=== PATIENT | male | born 1970 | race Caucasian/White ===

== ENCOUNTER 2017-02-27 16:04 | Emergency (ER) | payer OTHER ==
[2017-02-27] MEDS ORDERED: HYDR-2758 PO (16:23)
--- NOTE | 2017-02-27 16:24 | PHYS DOC ---
Adult General Chief Complaint Chief Complaint: BACK PAIN - NO INJURY HPI HPI 47-year-old male presenting to the emergency department today with lumbar back pain. He reports having a history of lumbar disc disease. Pain is moderate worse with walking intermittent and without alleviating factors. He denies numbness weakness tingling perineal paresthesias urinary incontinence or fecal incontinence. Review of systems is negative for chest pain shortness of breath abdominal pain nausea vomiting. All other review of systems is negative unless otherwise noted in history of present illness. ED course: 47-year-old male presenting to the emergency department today with lumbar back pain acute on chronic after lifting boxes while moving. Physical exam unremarkable. Clinical presentation not suggestive of cauda equina syndrome. The patient was prescribed oral intake inflammatory medications and pain medications to follow-up with his doctor in the next 2-3 days. The patient was then discharged home in stable condition to follow up with their primary care physician over the next 2-3 days. They were to return if their symptoms worsened or if they were concerned for any reason. [id number] discharge instructions and return precautions were given. Patient's questions were answered to their satisfaction. Patient is comfortable plan. Review of Systems Review of Systems see above Physical Exam Physical Exam Constitutional: Well developed, well nourished, no acute distress, non-toxic appearance. [] HENT: Normocephalic, atraumatic, bilateral external ears normal, oropharynx moist, no oral exudates, nose normal. [] Eyes: PERRLA, EOMI, conjunctiva normal, no discharge. [] Neck: Normal range of motion, no tenderness, supple, no stridor. [] Cardiovascular:Heart rate regular rhythm, no murmur [] Lungs & Thorax: Bilateral breath sounds clear to auscultation [] Abdomen: Bowel sounds normal, soft, no tenderness, no masses, no pulsatile masses. [] Skin: Warm, dry, no erythema, no rash. [] Back: Mild tenderness along the paraspinal musculature without midline tenderness. No step-offs. No abrasions lacerations or ecchymosis or fluctuance. Extremities: No tenderness, no cyanosis, no clubbing, ROM intact, no edema. [] Neurologic: Alert and oriented X 3, normal motor function, normal sensory function, no focal deficits noted. [] Psychologic: Affect normal, judgement normal, mood normal. [] EKG EKG [] Radiology/Procedures Radiology/Procedures [] Course & Med Decision Making Course & Med Decision Making Pertinent Labs and Imaging studies reviewed. (See chart for details) [] Dragon Disclaimer Dragon Disclaimer This chart was dictated in whole or in part using Voice Recognition software in a busy, high-work load, and often noisy Emergency Department environment. It may contain unintended and wholly unrecognized errors or omissions. Departure Departure: Impression: Primary Impression: Back pain Disposition: HOME, SELF-CARE Condition: STABLE Referrals: JUSTICE MENDEZ DO, [facility] (PCP) Patient Instructions: Back Pain, Adult Additional Instructions: Thank you for allowing us to participate in your care today. Followup with your primary care physician in 3 days if your symptoms do not improve. Call your Primary Doctor tomorrow and inform them of your visit today. If you do not have a primary care provider you can ask for a list of our primary care providers. Return to the emergency department you have any new or concerning findings. This should be evaluated by the primary care physician and any necessary consulting services for continued management within a few days after discharge. Return to emergency room if you have any new or concerning symptoms including but not limited to fever, chills, nausea, vomiting, intractable pain, any new rashes, chest pain, shortness of air, uncontrolled bleeding, difficulty breathing, and/or vision loss. You may have been prescribed medication that can change in your level of thinking and ability to operate machinery. These medications include hydrocodone and Ativan. Also, Benadryl has been known to do this as well. Be sure to check with your pharmacist and ask if the medications you've prescribed can affect your level of consciousness. I recommend not operating heavy machinery or driving while on medication such as these. Scripts Prednisone (PREDNISONE) 50 Mg Tablet 1 TAB PO DAILY, #4 TAB start medication on February 28. You received 1 dose in the emergency department on the . Prov: ZEESHAN HANDY MD 02/27/17 Hydrocodone Bit/Acetaminophen (HYDROCODONE-APAP 5-325 ) 1 Each Tablet 1 TAB PO PRN Q6HRS Y for PAIN, #10 TAB 0 Refills Prov: ZEESHAN HANDY MD 02/27/17 ZEESHAN HANDY MD Feb 27, 2017 16:23
[2017-02-27] MEDS ORDERED: PRED50TA PO (16:25)
[2017-02-27 16:35] VITALS: BP 147/98
[2017-02-27] MEDS ORDERED: predniSONE 10 MG TABLET PO ONE (16:35)
[2017-02-27] MEDS ORDERED: KETOROLAC 30 MG/ML VIAL. IM ONE (16:35)
== END 2017-02-27 16:35 | disposition home or self-care (01) ==
LOC: ER 16:04
DX: G89.29 Other chronic pain (principal); M54.5 Low back pain
CPT/HCPCS: 96372; 99283; J1885; J7512

== ENCOUNTER 2017-08-05 10:51 | Emergency (ER) | payer OTHER ==
[~2017-08-05] VITALS: Ht 182.9 cm; Wt 93.0 kg
[~2017-08-05 10:51] MED LIST: HYDR-2758 PO; PRED50TA PO
[2017-08-05] MEDS ORDERED: FLUT9.9S NS (12:32)
--- NOTE | 2017-08-05 12:32 | PHYS DOC ---
Past History Past Medical History: Hypertension, Other Past Surgical History: Other Alcohol Use: Occasionally Drug Use: None Adult General Chief Complaint Chief Complaint: COUGH HPI HPI Patient is a 47 year old M who presents with cough, ear fullness and nasal congestion. He states that his symptoms been present over the past 3-4 days with mild progressive worsening. He denies fever sweats or chills. He notes moderate mucus and posterior nasal drip. He has no other associated symptoms and no other exacerbating or alleviating factors. Review of Systems Review of Systems Constitutional: Denies fever or chills [] Eyes: Denies change in visual acuity, redness, or eye pain [] HENT: Denies sore throat [] Respiratory: Denies shortness of breath [] Cardiovascular: No additional information not addressed in HPI [] GI: Denies abdominal pain, nausea, vomiting, bloody stools or diarrhea [] : Denies dysuria or hematuria [] Musculoskeletal: Denies back pain or joint pain [] Integument: Denies rash or skin lesions [] Neurologic: Denies headache, focal weakness or sensory changes [] Endocrine: Denies polyuria or polydipsia [] All other systems were reviewed and found to be within normal limits, except as documented in this note. Family History Family History No pertinent family medical history was reported Current Medications Current Medications Current medications were reviewed Allergies Allergies Allergies Coded Allergies Type Severity Reaction Last Updated Verified No Known Drug Allergies 02/27/17 No Physical Exam Physical Exam Constitutional: Well developed, well nourished, no acute distress, non-toxic appearance. [] HENT: Normocephalic, atraumatic, moderate nasal mucosa erythema and edema with moderate mucus TMs clear bilaterally no sinus tenderness Eyes: EOMI, conjunctiva normal, no discharge. [] Neck: Normal range of motion, no tenderness, supple, no stridor. [] Cardiovascular:Heart rate regular rhythm, no murmur [] Lungs & Thorax: Bilateral breath sounds clear to auscultation [] Abdomen: Bowel sounds normal, soft, no tenderness, no masses, no pulsatile masses. [] Skin: Warm, dry, no erythema, no rash. [] Extremities: No tenderness, no cyanosis, no clubbing, ROM intact, no edema. [] Neurologic: Alert and oriented X 3, normal motor function, normal sensory function, no focal deficits noted. [] Psychologic: Affect normal, judgement normal, mood normal. [] Current Patient Data Vital Signs Vital Signs Date Time Temp Pulse Resp B/P (MAP) Pulse Ox O2 Delivery O2 Flow Rate FiO2 08/05/17 11:13 97.2 102 17 96 Room Air EKG EKG [] Radiology/Procedures Radiology/Procedures [] Course & Med Decision Making Course & Med Decision Making Pertinent Labs and Imaging studies reviewed. (See chart for details) [] Dragon Disclaimer Dragon Disclaimer This electronic medical record was generated, in whole or in part, using a voice recognition dictation system. Departure Departure: Impression: Primary Impression: Upper respiratory infection, viral Disposition: HOME, SELF-CARE Condition: STABLE Referrals: JUSTICE MENDEZ DO, [facility] (PCP) Patient Instructions: Upper Respiratory Infection, Adult Additional Instructions: Meño was seen in the ED for cough and congestion. No emergency medical condition was found on history and physical exam. His symptoms are most consistent with an upper respiratory infection. He is advised to use nasal saline rinses regularly. He was given a prescription for nasal steroid spray. He is advised consider limited use of Afrin for his symptoms as well. Is advised follow-up with his primary care doctor as needed for further management. Scripts Fluticasone Propionate (Flonase Allergy Relief) 9.9 Ml [place].susp 1 SPRAYS NS BID for 7 Days, BOTTLE Prov: DARLIN SIMONS MD 08/05/17 DARLIN SIMONS MD Aug 05, 2017 12:32
[2017-08-05 12:59] VITALS: BP 148/68
== END 2017-08-05 13:00 | disposition home or self-care (01) ==
LOC: ER 10:51
DX: J06.9 Acute upper respiratory infection, unspecified (principal); B97.89 Other viral agents as the cause of diseases classified elsewhere; I10 Essential (primary) hypertension
CPT/HCPCS: 99283

== ENCOUNTER 2018-05-16 16:44 | Emergency (ER) | payer OTHER ==
[~2018-05-16] VITALS: Ht 182.9 cm; Wt 100.2 kg
[~2018-05-16 16:44] MED LIST changes: +FLUT9.9S NS
[2018-05-16] MEDS ORDERED: IBUPROFEN 400 MG TABLET. PO ONE (17:10)
--- NOTE | 2018-05-16 17:23 | RAD ---
Indication: Heavy object fell on mid forearm. Pain and swelling TECHNIQUE: AP and lateral views of thew right forearm COMPARISON: None Findings/ impression: No acute fracture or dislocation. No elbow joint effusion. Electronically signed by: Jaswinder Sánchez DO (05/16/2018 5:20 PM) [facility]
[2018-05-16] MEDS ORDERED: HYDR-971 PO (17:41)
[2018-05-16] MEDS ORDERED: IBUP800T19 PO (17:41)
--- NOTE | 2018-05-16 17:41 | PHYS DOC ---
Past History Past Medical History: Hypertension, Other Past Surgical History: Other Smoking: Non-smoker Alcohol Use: Occasionally Drug Use: None Adult General Chief Complaint Chief Complaint: UPPER EXTREMITY INJURY HPI HPI Patient is a 48 year old right handed male who presents with complaining of injury to right forearm. Patient states 20-30 pounds metal cylinder fell on his forearm prior to arrival to ER without other injuries or focal neuro deficit. Patient rated his pain as moderate. Patient is up-to-date with his immunization. Review of Systems Review of Systems Constitutional: Denies fever or chills [] Eyes: Denies change in visual acuity, redness, or eye pain [] HENT: Denies nasal congestion or sore throat [] Respiratory: Denies cough or shortness of breath [] Cardiovascular: No additional information not addressed in HPI [] GI: Denies abdominal pain, nausea, vomiting, bloody stools or diarrhea [] : Denies dysuria or hematuria [] Musculoskeletal: Denies back pain or joint pain [] Integument: Denies rash or skin lesions [] Neurologic: Denies headache, focal weakness or sensory changes [] Endocrine: Denies polyuria or polydipsia [] All other systems were reviewed and found to be within normal limits, except as documented in this note. Current Medications Current Medications Current Medications Medications (Trade) Dose Ordered Sig/Harshad Start Time Stop Time Status Last Admin Dose Admin Ibuprofen (Motrin) 800 mg 1X ONCE 05/16/18 17:10 05/16/18 17:11 DC 05/16/18 17:21 800 MG Allergies Allergies Allergies Coded Allergies Type Severity Reaction Last Updated Verified naproxen Allergy Unknown 05/16/18 Yes Physical Exam Physical Exam Constitutional: Well developed, well nourished, mild distress, non-toxic appearance. [] HENT: Normocephalic, atraumatic. Eyes: PERRLA, EOMI, conjunctiva normal, no discharge. [] Neck: Normal range of motion, no tenderness, supple, no stridor. [] Cardiovascular:Heart rate regular rhythm, no murmur [] Lungs & Thorax: Bilateral breath sounds clear to auscultation [] Extremities: Right forearm without deformity or edema or contusion, tenderness of mid shaft of right forearm without neurovascular deficit, , no cyanosis, no clubbing, ROM intact, no edema. [] Neurologic: Alert and oriented X 3, normal motor function, normal sensory function, no focal deficits noted. [] Psychologic: Affect normal, judgement normal, mood normal. [] Current Patient Data Vital Signs Vital Signs Date Time Temp Pulse Resp B/P (MAP) Pulse Ox O2 Delivery O2 Flow Rate FiO2 05/16/18 16:44 97.7 86 18 96 Room Air EKG EKG [] Radiology/Procedures Radiology/Procedures [address] [address] IMAGING REPORT Signed PATIENT: PALMER JOY ACCOUNT: [id number] : 1970 LOCATION: ER AGE: 48 SEX: M EXAM STATUS: PRE ER ORD. PHYSICIAN: OTILIA SAM MD REASON: injury PROCEDURE: FOREARM RIGHT Indication: Heavy object fell on mid forearm. Pain and swelling TECHNIQUE: AP and lateral views of thew right forearm COMPARISON: None Findings/ impression: No acute fracture or dislocation. No elbow joint effusion. Electronically signed by: Jaswinder Sánchez DO (05/16/2018 5:20 PM) [facility] DICTATED AND SIGNED BY: JASWINDER SÁNCHEZ DO DATE: 05/16/18 1719 CC: OTILIA SAM MD; JIN MEADOWS MD ~ Course & Med Decision Making Course & Med Decision Making Pertinent Imaging studies reviewed. (See chart for details) discharge: I've spoken with the patient and/or caregivers. I've explained the patient's condition, diagnosis and treatment plan based on information available to me at this time. I've answered the patient's and/or caregivers questions and addressed any concerns. The patient and/or caregivers have a good understanding the patient's diagnosis, condition and treatment plan as can be expected at this point. Vital signs have been stabilized. The patient's condition is stable for discharge from the emergency department. The patient will pursue further outpatient evaluation with her primary care provider or other designated consulting physician as outlined in the discharge instructions. Patient and/or caregivers are agreeable to this plan of care and follow-up instructions have been explained in detail. The patient and/or caregivers have received these instructions in written format and expressed understanding of these discharge instructions. The patient and her caregivers are aware that if any significant change in condition or worsening of symptoms should prompt him to immediately return to this of the closest emergency department. If an emergent department is not readily available I would encourage him to call 911. Frieda Disclaimer Frieda Disclaimer This electronic medical record was generated, in whole or in part, using a voice recognition dictation system. Departure Departure: Impression: Primary Impression: Right forearm injury Disposition: HOME, SELF-CARE (at 1739) Condition: STABLE Referrals: JIN MEADOWS MD (PCP) Patient Instructions: Contusion Additional Instructions: Apply ice on the affected area Follow-up with your primary care physician in 3-5 days Return to ER if not getting better Scripts Hydrocodone Bit/Acetaminophen (NORCO 5-325 TABLET) 1 Each Tablet 1 TAB PO PRN Q6HRS PRN for PAIN, #14 TAB 0 Refills Prov: OTILIA SAM MD 05/16/18 Ibuprofen (IBUPROFEN) 800 Mg Tablet 800 MG PO TID PRN for PAIN, #30 TAB Prov: OTILIA SAM MD 05/16/18 OTILIA SAM MD May 16, 2018 17:41
[2018-05-16 17:53] VITALS: BP 166/92
== END 2018-05-16 17:47 | disposition home or self-care (01) ==
LOC: ER 16:44
DX: S59.911A Unspecified injury of right forearm, initial encounter (principal); I10 Essential (primary) hypertension; Z88.6 Allergy status to analgesic agent; W20.8XXA Other cause of strike by thrown, projected or falling object, initial encounter; Y93.89 Activity, other specified; Y92.89 Other specified places as the place of occurrence of the external cause; Y99.8 Other external cause status
CPT/HCPCS: 73090; 99284

== ENCOUNTER 2018-09-17 09:04 | Emergency (ER) | payer OTHER ==
[~2018-09-17] VITALS: Ht 182.9 cm; Wt 95.3 kg
[~2018-09-17 09:04] MED LIST changes: +HYDR-2155 PO; -HYDR-2758 PO; +HYDR-3165 PO; +IBUP800T19 PO
[2018-09-17 09:10] VITALS: BP 137/80
--- NOTE | 2018-09-17 09:36 | PHYS DOC ---
Past History Past Medical History: Hypertension Past Surgical History: Other Smoking: Non-smoker Alcohol Use: Occasionally Drug Use: None Adult General Chief Complaint Chief Complaint: NAUSEA/VOMITING [facility] HPI Patient is a 48 year old male who presents with complaining of nausea and vomiting since last night. Patient states he had history of chronic back pain related to injury during the 3 surgeries and had increasing of low back pain for a few days and seen by his primary care physician 3 days ago and treated with hydrocodone and ibuprofen. Patient complaining of cough and fever up to 101 for the last couple days. Patient denies diarrhea, sore throat, earache, sick contacts at home, urinary symptom, focal neuro deficit. Patient states during episodes of cough his back pain getting worse. Patient states his 4-year- old son is getting chemotherapy for leukemia and he wants to make sure he doesn' t have influenza. Review of Systems Review of Systems Constitutional: Reports fever Eyes: Denies change in visual acuity, redness, or eye pain [] HENT: Denies nasal congestion or sore throat [] Respiratory: Reports cough Cardiovascular: No additional information not addressed in HPI [] GI: Denies abdominal pain, bloody stools or diarrhea, reports nausea and vomiting [] : Denies dysuria or hematuria [] Musculoskeletal: Reports back pain, denies joint pain [] Integument: Denies rash or skin lesions [] Neurologic: Denies headache, focal weakness or sensory changes [] Endocrine: Denies polyuria or polydipsia [] All other systems were reviewed and found to be within normal limits, except as documented in this note. Allergies Allergies Allergies Coded Allergies Type Severity Reaction Last Updated Verified naproxen Allergy Unknown 05/16/18 Yes Physical Exam Physical Exam Constitutional: Well developed, well nourished, mild acute distress, non-toxic appearance. [] HENT: Normocephalic, atraumatic, bilateral external ears normal, oropharynx moist, no oral exudates, nose normal. [] Eyes: PERRLA, EOMI, conjunctiva normal, no discharge. [] Neck: Normal range of motion, no tenderness, supple, no stridor. [] Cardiovascular:Heart rate regular rhythm, no murmur [] Lungs & Thorax: Bilateral breath sounds clear to auscultation [] Abdomen: Bowel sounds normal, soft, no tenderness, no masses, no pulsatile masses. [] Skin: Warm, dry, no erythema, no rash. [] Back: No tenderness, no CVA tenderness. [] Extremities: No tenderness, no cyanosis, no clubbing, ROM intact, no edema. [] Neurologic: Alert and oriented X 3, normal motor function, normal sensory function, no focal deficits noted. [] Psychologic: Affect normal, judgement normal, mood normal. [] Current Patient Data Vital Signs Vital Signs Date Time Temp Pulse Resp B/P (MAP) Pulse Ox O2 Delivery O2 Flow Rate FiO2 09/17/18 09:10 98.5 90 20 97 Room Air EKG EKG [] Radiology/Procedures Radiology/Procedures [] Course & Med Decision Making Course & Med Decision Making Pertinent Labs and Imaging studies Evolution of patient in ER showed 48-year-old male patient with complaining of low back pain for a few days and nausea and vomiting since last night. Temperature of 101 at home. Patient had negative flu test. Patient did not have sign of dehydration and tolerated oral intake before arrival to ER. Plan discharge patient home with diagnose of lumbosacral strain and viral gastritis. Dragon Disclaimer Dragon Disclaimer This electronic medical record was generated, in whole or in part, using a voice recognition dictation system. Departure Departure: Impression: Primary Impression: Viral gastritis Additional Impressions: Upper respiratory infection, viral Acute lumbosacral myofascial strain Disposition: 01 HOME, SELF-CARE (at 0956) Condition: STABLE Referrals: JIN MEADOWS MD (PCP) Patient Instructions: Lumbosacral Strain, Nausea and Vomiting, Upper Respiratory Infection, Adult Additional Instructions: Drink plenty of liquids Follow-up with your primary care physician in 3-5 days Return to ER if not getting better Scripts Ondansetron Hcl (ZOFRAN) 4 Mg Tablet 1 TAB PO Q6HRS for nausea and vomiting, #12 TAB Prov: OTILIA SAM MD 09/17/18 Hydrocodone/Chlorphen P-Stirex (Tussionex Pennkinetic Susp) 115 Ml [place].er.12h 5 ML PO BID for cough and congestion, #120 ML Prov: OTILIA SAM MD 09/17/18 Cyclobenzaprine Hcl (CYCLOBENZAPRINE HCL) 10 Mg Tablet 1 TAB PO TID for pain, #30 TAB Prov: OTILIA SAM MD 09/17/18 Problem Qualifiers Additional Impressions: Acute lumbosacral myofascial strain Encounter type: subsequent encounter Qualified Codes: S39.012D - Strain of muscle, fascia and tendon of lower back, subsequent encounter OTILIA SAM MD Sep 17, 2018 09:36
[2018-09-17 09:49] LABS: INFLUENZA A PATIENT NEGATIVE (NEGATIVE); INFLUENZA B PATIENT NEGATIVE (NEGATIVE)
[2018-09-17] MEDS ORDERED: CYCL-331 PO (09:57)
[2018-09-17] MEDS ORDERED: HYDR115S2 PO (09:57)
[2018-09-17] MEDS ORDERED: ONDA4TAB7 PO (09:57)
== END 2018-09-17 10:00 | disposition home or self-care (01) ==
LOC: ER 09:04
DX: S39.012A Strain of muscle, fascia and tendon of lower back, initial encounter (principal); A08.4 Viral intestinal infection, unspecified; J06.9 Acute upper respiratory infection, unspecified; I10 Essential (primary) hypertension; Z88.6 Allergy status to analgesic agent; X58.XXXA Exposure to other specified factors, initial encounter; Y93.89 Activity, other specified; Y92.89 Other specified places as the place of occurrence of the external cause; Y99.8 Other external cause status
CPT/HCPCS: 87804; 99283

== ENCOUNTER 2018-12-03 12:42 | Emergency (ER) | payer OTHER ==
[~2018-12-03] VITALS: Ht 182.9 cm; Wt 98.4 kg
[~2018-12-03 12:42] MED LIST changes: +CYCL-331 PO; +HYDR115S2 PO; +ONDA4TAB7 PO
[2018-12-03 12:58] VITALS: BP 137/97
--- NOTE | 2018-12-03 12:58 | PHYS DOC ---
Past History Past Medical History: Hypertension Past Surgical History: Other Smoking: Non-smoker Alcohol Use: Occasionally Drug Use: None Adult General Chief Complaint Chief Complaint: UPPER EXTREMITY PAIN HPI HPI Patient is a 48-year-old male who presents with complaint of pain and injury to his right hand. Patient states that he had taken his kids to the [place] [facility] [employer] and he had accidentally hyperflexed his third and fourth digits and since then he has had a lot of pain especially along the dorsal aspect as well as swelling in this area. He also indicates that during the night he had spasming in his hand that caused him to wake up and have difficulty sleeping. He rates pain as moderate. He denies any other injuries. He does not think that he actually impacted his knuckles. Review of Systems Review of Systems Constitutional: Denies fever or chills [] Respiratory: Denies cough or shortness of breath [] Cardiovascular: No additional information not addressed in HPI [] Musculoskeletal: Positive right hand pain [] Allergies Allergies Allergies Coded Allergies Type Severity Reaction Last Updated Verified naproxen Allergy Unknown 05/16/18 Yes Physical Exam Physical Exam Constitutional: Well developed, well nourished, no acute distress, non-toxic appearance. [] Cardiovascular: Regular rate and rhythm[] Lungs & Thorax: Bilateral breath sounds clear to auscultation [] Extremities: Examination of right hand demonstrates soft tissue swelling, redness and tenderness on the dorsal aspect of the hand worst around the third and fourth MCPs. [] Neurologic: Alert and oriented X 3, no focal deficits noted. [] EKG EKG [] Radiology/Procedures Radiology/Procedures [] Impressions: PROCEDURE: HAND RIGHT 3V Right hand, 3 views, 12/03/2018: HISTORY: Hand pain, injury A tiny calcific density located along the volar aspect of the PIP joint of the middle finger is sclerotic and probably old. No acute fracture or dislocation is identified. There is mild soft tissue swelling over the distal metacarpals. IMPRESSION: No acute bony abnormality is detected. Electronically signed by: Loc Pleitez MD (12/03/2018 1:19 PM) [facility] Course & Med Decision Making Course & Med Decision Making Pertinent Labs and Imaging studies reviewed. (See chart for details) [] Dragon Disclaimer Dragon Disclaimer This electronic medical record was generated, in whole or in part, using a voice recognition dictation system. Departure Departure: Impression: Primary Impression: Sprain of right hand Disposition: HOME, SELF-CARE Condition: STABLE Referrals: JIN MEADOWS MD (PCP) Patient Instructions: Joint Sprain Scripts Hydrocodone Bit/Acetaminophen (NORCO 5-325 TABLET) 1 Each Tablet 1 TAB PO PRN Q6HRS PRN for PAIN, #15 TAB 0 Refills Prov: CHAVO SALINAS Jr. DO 12/03/18 Problem Qualifiers Primary Impression: Sprain of right hand Encounter type: initial encounter Qualified Codes: S63.91XA - Sprain of unspecified part of right wrist and hand, initial encounter CHAVO SALINAS Jr. DO December 03, 2018 12:58
--- NOTE | 2018-12-03 13:22 | RAD ---
Right hand, 3 views, 12/03/2018: HISTORY: Hand pain, injury A tiny calcific density located along the volar aspect of the PIP joint of the middle finger is sclerotic and probably old. No acute fracture or dislocation is identified. There is mild soft tissue swelling over the distal metacarpals. IMPRESSION: No acute bony abnormality is detected. Electronically signed by: Loc Pleitez MD (12/03/2018 1:19 PM) [facility]
[2018-12-03] MEDS ORDERED: HYDR-3165 PO (13:34)
== END 2018-12-03 13:40 | disposition home or self-care (01) ==
LOC: ER 12:42
DX: S63.91XA Sprain of unspecified part of right wrist and hand, initial encounter (principal); I10 Essential (primary) hypertension; Z88.8 Allergy status to other drugs, medicaments and biological substances; X50.9XXA Other and unspecified overexertion or strenuous movements or postures, initial encounter; Y93.89 Activity, other specified; Y92.89 Other specified places as the place of occurrence of the external cause; Y99.8 Other external cause status
CPT/HCPCS: 29125; 73130; 99284

== ENCOUNTER 2019-04-06 10:29 | Emergency (ER) | payer OTHER ==
[~2019-04-06] VITALS: Ht 182.9 cm; Wt 100.1 kg
[2019-04-06] MEDS ORDERED: ALBU2.5V8 IH (11:06)
[2019-04-06] MEDS ORDERED: AZIT250T6 PO (11:06)
--- NOTE | 2019-04-06 11:07 | PHYS DOC ---
Past History Past Medical History: Hypertension Past Surgical History: Other Smoking: Non-smoker Alcohol Use: Occasionally Drug Use: None Adult General Chief Complaint Chief Complaint: COUGH HPI HPI 49-year-old male presents with 3 day history of cough and congestion. The patient had a low level fever 2 days ago and iron fever last night. It is amenable to antipyretics. This is concerning to the patient because he has a child at home is being treated for leukemia. He wants to make sure he is not developing some kind of bacterial infection. No known sick contacts. Review of Systems Review of Systems Constitutional: Denies fever or chills [] Eyes: Denies change in visual acuity, redness, or eye pain [] HENT: Nasal congestion[] Respiratory: Cough without shortness of breath [] Cardiovascular: No additional information not addressed in HPI [] GI: Denies abdominal pain, nausea, vomiting, bloody stools or diarrhea [] : Denies dysuria or hematuria [] Musculoskeletal: Denies back pain or joint pain [] Integument: Denies rash or skin lesions [] Neurologic: Denies headache, focal weakness or sensory changes [] Endocrine: Denies polyuria or polydipsia [] All other systems were reviewed and found to be within normal limits, except as documented in this note. Allergies Allergies Allergies Coded Allergies Type Severity Reaction Last Updated Verified naproxen Allergy Unknown 04/06/19 Yes Physical Exam Physical Exam Constitutional: Well developed, well nourished, no acute distress, non-toxic appearance. [] HENT: Normocephalic, atraumatic, bilateral external ears normal, oropharynx moist, no oral exudates, nose normal. [] Eyes: PERRLA, EOMI, conjunctiva normal, no discharge. [] Neck: Normal range of motion, no tenderness, supple, no stridor. [] Cardiovascular:Heart rate regular rhythm, no murmur [] Lungs & Thorax: Bilateral breath sounds clear to auscultation [] Abdomen: Bowel sounds normal, soft, no tenderness, no masses, no pulsatile masses. [] Skin: Warm, dry, no erythema, no rash. [] Back: No tenderness, no CVA tenderness. [] Extremities: No tenderness, no cyanosis, no clubbing, ROM intact, no edema. [] Neurologic: Alert and oriented X 3, normal motor function, normal sensory function, no focal deficits noted. [] Psychologic: Affect normal, judgement normal, mood normal. [] EKG EKG [] Radiology/Procedures Radiology/Procedures [] Impressions: PROCEDURE: CHEST PA LATERAL CLINICAL INDICATION: Cough. COMPARISON: None FINDINGS: No pneumothorax identified. Cardiac and mediastinal contours unremarkable. No pulmonary consolidation or acute airspace disease. No acute osseous abnormalities identified. IMPRESSION: No pulmonary consolidation or acute airspace disease. Electronically signed by: Jaswinder Garcia DO (04/06/2019 11:09 AM) [facility] DICTATED AND SIGNED BY: JASWINDER GARCIA DO DATE: 04/06/19 [id number] CC: BHARATHI ODELL DO; JIN MEADOWS MD ~ Course & Med Decision Making Course & Med Decision Making Pertinent Labs and Imaging studies reviewed. (See chart for details) Given the patient's fever and immunocompromise child at home, I will treat him with azithromycin prophylactically. I will also give him prescription for an albuterol MDI. He is stable for discharge at this time. [] Dragon Disclaimer Dragon Disclaimer This electronic medical record was generated, in whole or in part, using a voice recognition dictation system. Departure Departure: Impression: Primary Impression: Viral URI with cough Disposition: HOME, SELF-CARE Condition: STABLE Referrals: JIN MEADOWS MD (PCP) Patient Instructions: Upper Respiratory Infection, Adult, [id number] Scripts Albuterol Sulfate (VENTOLIN HFA INHALER) 18 Gm Hfa.aer.ad 1-2 PUFF IH PRN Q4HRS PRN for FOR ASTHMA, #1 INHALER 0 Refills Prov: BHARATHI ODELL DO 04/06/19 Azithromycin (AZITHROMYCIN TABLET) 250 Mg Tablet 1 PKG PO UD for atypical pneumonia, #6 TAB Prov: BHARATHI ODELL DO 04/06/19 BHARATHI ODELL DO Apr 06, 2019 11:06
--- NOTE | 2019-04-06 11:12 | RAD ---
PROCEDURE: CHEST PA LATERAL CLINICAL INDICATION: Cough. COMPARISON: None FINDINGS: No pneumothorax identified. Cardiac and mediastinal contours unremarkable. No pulmonary consolidation or acute airspace disease. No acute osseous abnormalities identified. IMPRESSION: No pulmonary consolidation or acute airspace disease. Electronically signed by: Jaswinder Sánchez DO (04/06/2019 11:09 AM) [facility]
[2019-04-06] MEDS ORDERED: CODE5LIQ PO (11:22)
[2019-04-06 11:25] VITALS: BP 150/94
== END 2019-04-06 11:25 | disposition home or self-care (01) ==
LOC: ER 10:29
DX: J06.9 Acute upper respiratory infection, unspecified (principal); B97.89 Other viral agents as the cause of diseases classified elsewhere; I10 Essential (primary) hypertension; Z88.6 Allergy status to analgesic agent
CPT/HCPCS: 71046; 99284

== ENCOUNTER 2019-07-10 10:51 | Emergency (ER) | payer OTHER ==
[~2019-07-10] VITALS: Ht 365.8 cm; Wt 104.8 kg
[~2019-07-10 10:51] MED LIST changes: +ALBU2.5V8 IH; +AZIT250T6 PO; +CODE5LIQ PO
[2019-07-10 10:55] VITALS: BP 163/93
[2019-07-10] MEDS ORDERED: PRED50TA PO (11:24)
[2019-07-10] MEDS ORDERED: MELO7.5T29 PO (11:24)
[2019-07-10] MEDS ORDERED: ORPH-16 PO (11:24)
--- NOTE | 2019-07-10 11:25 | PHYS DOC ---
Past History Past Medical History: Hypertension Past Surgical History: Other Additional Past Surgical Histo: oral Smoking: Non-smoker Alcohol Use: Occasionally Drug Use: None Adult General Chief Complaint Chief Complaint: BACK PAIN OR INJURY HPI HPI Patient is a 89-year-old male presents complaining of low back pain for the past 6 days. On Saturday he was shoveling snow and twisted wrong. He was seen at the [place] yesterday started on Valium and NSAIDs along with Tylenol which has not significantly improved his discomfort. He does have a long-standing history of back issues since 2005 when he was injured in the course of his duties. It occasionally flares up. He has had no loss of bowel or bladder control. No previous back surgery. No fever. Denies any injection drug use. Pain is moderate to severe. Worse with movement.[] Review of Systems Review of Systems Constitutional: Denies fever or chills [] Eyes: Denies change in visual acuity, redness, or eye pain [] HENT: Denies nasal congestion or sore throat [] Respiratory: Denies cough or shortness of breath [] Cardiovascular: No chest pain or palpitations[] GI: Denies abdominal pain, nausea, vomiting, bloody stools or diarrhea [] : Denies dysuria or hematuria [] Musculoskeletal: See history of present illness[] Integument: Denies rash or skin lesions [] Neurologic: Denies headache, focal weakness or sensory changes [] Endocrine: Denies polyuria or polydipsia [] All other systems were reviewed and found to be within normal limits, except as documented in this note. Allergies Allergies Allergies Coded Allergies Type Severity Reaction Last Updated Verified naproxen Allergy Unknown 04/06/19 Yes Physical Exam Physical Exam Constitutional: Well developed, well nourished, no acute distress, non-toxic appearance. [] HENT: Normocephalic, atraumatic, bilateral external ears normal, oropharynx moist, no oral exudates, nose normal. [] Eyes: PERRLA, EOMI, conjunctiva normal, no discharge. [] Neck: Normal range of motion, no tenderness, supple, no stridor. [] Cardiovascular:Heart rate regular rhythm, no murmur [] Lungs & Thorax: Bilateral breath sounds clear to auscultation [] Abdomen: Bowel sounds normal, soft, no tenderness, no masses, no pulsatile masses. [] Skin: Warm, dry, no erythema, no rash. [] Back: Lumbar paraspinal muscle tenderness to palpation. No midline tenderness. No step-off. No crepitus. Decreased forward bending, almost normal side bending and rotation bilaterally. Negative Nitish signs. DTRs are 2 over 4 and symmetric in the patella and Achilles. Normal gait. Increased pain with tiptoe walking as compared with normal walking or heel walking. Strength is 5 out of 5 in the lower extremities. No CVA tenderness. [] Extremities: No tenderness, no cyanosis, no clubbing, ROM intact, no edema. [] Neurologic: Alert and oriented X 3, normal motor function, normal sensory function, no focal deficits noted. [] Psychologic: Affect normal, judgement normal, mood normal. [] Current Patient Data Vital Signs Vital Signs Date Time Temp Pulse Resp B/P (MAP) Pulse Ox O2 Delivery O2 Flow Rate FiO2 07/10/19 10:55 75 16 99 Room Air EKG EKG [] Radiology/Procedures Radiology/Procedures [] Course & Med Decision Making Course & Med Decision Making Pertinent Labs and Imaging studies reviewed. (See chart for details) Emergency pertinent course: Patient arrived, was placed in bed, and tolerated exam well. Findings and plan were discussed with the patient. He voiced understanding. All questions were answered. He was discharged in improved condition. Medical decision making: There is no evidence of neurologic compromise including cauda equina syndrome. No evidence of AAA. No evidence of vascular compromise. This appears to be musculoskeletal skeletal in nature.[] Dragon Disclaimer Dragon Disclaimer This electronic medical record was generated, in whole or in part, using a voice recognition dictation system. Departure Departure: Impression: Primary Impression: Low back strain Disposition: HOME, SELF-CARE Condition: IMPROVED Referrals: PCP,UNKNOWN (PCP) Patient Instructions: Low Back Strain with [facility] Additional Instructions: Follow-up with your regular doctor in 2 days. Take the medication as prescribed. Do not take ibuprofen along with the meloxicam. Do not take Valium along with the orphenadrine. Return to the ER if worsening pain, weakness, loss of bowel or bladder control, or any other concerns. Scripts Prednisone (PREDNISONE) 50 Mg Tablet 1 TAB PO DAILY for INFLAMMATION, #5 TAB Prov: JANIE HUGGINS DO 07/10/19 Orphenadrine Citrate (ORPHENADRINE CITRATE) 100 Mg Tablet.er 100 MG PO BID for BACK PAIN, #20 TAB.SR Prov: JANIE HUGGINS DO 07/10/19 Meloxicam (MELOXICAM) 7.5 Mg Tablet 7.5 MG PO DAILY for PAIN, #20 TAB Prov: JANIE HUGGINS DO 07/10/19 Problem Qualifiers Primary Impression: Low back strain Encounter type: initial encounter Qualified Codes: S39.012A - Strain of muscle, fascia and tendon of lower back, initial encounter JANIE HUGGINS DO Jul 10, 2019 11:25
== END 2019-07-10 11:30 | disposition home or self-care (01) ==
LOC: ER 10:51
DX: S39.012A Strain of muscle, fascia and tendon of lower back, initial encounter (principal); I10 Essential (primary) hypertension; Z88.8 Allergy status to other drugs, medicaments and biological substances; X50.9XXA Other and unspecified overexertion or strenuous movements or postures, initial encounter; Y93.H1 Activity, digging, shoveling and raking; Y92.89 Other specified places as the place of occurrence of the external cause; Y99.8 Other external cause status
CPT/HCPCS: 99283

== ENCOUNTER 2019-07-15 12:24 | Emergency (ER) | payer OTHER ==
[~2019-07-15] VITALS: Ht 365.8 cm; Wt 104.8 kg
[~2019-07-15 12:24] MED LIST changes: +MELO7.5T29 PO; +ORPH-16 PO
[2019-07-15 12:30] VITALS: BP 156/100
[2019-07-15] MEDS ORDERED: OXAP600T2 PO (13:08)
[2019-07-15] MEDS ORDERED: DIAZ5TAB PO (13:08)
--- NOTE | 2019-07-15 13:09 | PHYS DOC ---
Past History Past Medical History: Hypertension Past Surgical History: Other Additional Past Surgical Histo: oral Smoking: Non-smoker Alcohol Use: Occasionally Drug Use: None Adult General Chief Complaint Chief Complaint: BACK PAIN OR INJURY HPI HPI Patient is a 49-year-old male presents with back pain. This is been present for over the past week. He was seen in the emergency department 5 days ago for this after injuring his back while shoveling snow. He reports he is getting limited relief with the medications prescribed. No loss of bowel or bladder control. No fever. No history of injection drug abuse. He has worsening pain with movement. Pain is severe in intensity at worst. He has an appointment with orthopedic surgery at in 5 days because of a long-standing history of similar discomfort requiring ablation and steroid injections locally in the past.[] Review of Systems Review of Systems Constitutional: Denies fever or chills [] Eyes: Denies change in visual acuity, redness, or eye pain [] HENT: Denies nasal congestion or sore throat [] Respiratory: Denies cough or shortness of breath [] Cardiovascular: No chest pain or palpitations[] GI: Denies abdominal pain, nausea, vomiting, bloody stools or diarrhea [] : Denies dysuria or hematuria [] Musculoskeletal: See history of present illness[] Integument: Denies rash or skin lesions [] Neurologic: Denies headache, focal weakness or sensory changes [] Endocrine: Denies polyuria or polydipsia [] All other systems were reviewed and found to be within normal limits, except as documented in this note. Current Medications Current Medications Current Medications Medications (Trade) Dose Ordered Sig/[facility] Start Time Stop Time Status Last Admin Dose Admin Ketorolac Tromethamine (Toradol 30mg Vial) 30 mg 1X ONCE 07/15/19 13:00 07/15/19 13:01 UNV Orphenadrine Citrate (Norflex) 60 mg 1X ONCE 07/15/19 13:00 07/15/19 13:01 UNV Allergies Allergies Allergies Coded Allergies Type Severity Reaction Last Updated Verified naproxen Allergy Unknown 04/06/19 Yes Physical Exam Physical Exam Constitutional: Well developed, well nourished, no acute distress, non-toxic appearance. [] HENT: Normocephalic, atraumatic, bilateral external ears normal, oropharynx moist, no oral exudates, nose normal. [] Eyes: PERRLA, EOMI, conjunctiva normal, no discharge. [] Neck: Normal range of motion, no tenderness, supple, no stridor. [] Cardiovascular:Heart rate regular rhythm, no murmur [] Lungs & Thorax: Bilateral breath sounds clear to auscultation [] Abdomen: Bowel sounds normal, soft, no tenderness, no masses, no pulsatile masses. [] Skin: Warm, dry, no erythema, no rash. [] Back: Bilateral lumbar paraspinal muscle tenderness. No midline tenderness. No step-off. No crepitus. Normal gait. Decreased active range of motion secondary to pain., no CVA tenderness. [] Extremities: No tenderness, no cyanosis, no clubbing, ROM intact, no edema. [] Neurologic: Alert and oriented X 3, normal motor function, normal sensory function, no focal deficits noted. [] Psychologic: Affect normal, judgement normal, mood normal. [] Current Patient Data Vital Signs Vital Signs Date Time Temp Pulse Resp B/P (MAP) Pulse Ox O2 Delivery O2 Flow Rate FiO2 07/15/19 12:30 98.2 80 16 98 Room Air EKG EKG [] Radiology/Procedures Radiology/Procedures [] Course & Med Decision Making Course & Med Decision Making Pertinent Labs and Imaging studies reviewed. (See chart for details) Emergency department course: Patient arrived, was placed in bed, and tolerated exam well. He was given medicine help with pain and muscle spasm. Findings and plan were discussed with the patient who voiced understanding. All questions were answered. He was discharged in improved condition. Medical decision making: Radiographs are not indicated at this time given that there has been no trauma, no fever, no recent changes in weight, no personal history of cancer, no evidence of dissecting aortic aneurysm on exam, no history of injection drug use/abuse.[] Dragon Disclaimer Dragon Disclaimer This electronic medical record was generated, in whole or in part, using a voice recognition dictation system. Departure Departure: Impression: Primary Impression: Low back pain Disposition: HOME, SELF-CARE Condition: IMPROVED Referrals: PCP,NO (PCP) Patient Instructions: Back Pain, Adult Additional Instructions: Follow-up with your regular doctor and orthopedic surgery within the next week. Follow the back exercises that were given to at the last emergency department visit on July 10, 2019. Stop the meloxicam and orphenadrine and and substitute these new medicines. Return to the ER if you have loss of bowel or bladder control, fever of more than 101, or any other concerns. Scripts Diazepam (VALIUM) 5 Mg Tablet 5 MG PO BID for BACK PAIN, #10 TAB Prov: JANIE HUGGINS DO 07/15/19 Oxaprozin (OXAPROZIN) 600 Mg Tablet 600 MG PO BID for pain, #20 TAB Prov: JANIE HUGGINS DO 07/15/19 Problem Qualifiers Primary Impression: Low back pain Chronicity: unspecified Back pain laterality: bilateral Sciatica presence: unspecified whether sciatica present Qualified Codes: M54.5 - Low back pain JANIE HUGGINS DO Jul 15, 2019 13:09
[2019-07-15] MEDS ORDERED: ORPHENADRINE CITRATE 60 MG/2 ML VIAL. IM ONE (13:15)
[2019-07-15] MEDS ORDERED: KETOROLAC 30 MG/ML VIAL. IM ONE (13:15)
== END 2019-07-15 13:12 | disposition home or self-care (01) ==
LOC: ER 12:24
DX: M54.5 Low back pain (principal); I10 Essential (primary) hypertension; Z88.8 Allergy status to other drugs, medicaments and biological substances
CPT/HCPCS: 99283

== ENCOUNTER 2019-09-12 09:16 | Emergency (ER) | payer OTHER ==
[~2019-09-12] VITALS: Ht 188 cm; Wt 104.8 kg
[2019-09-12 09:16] VITALS: BP 141/85
[~2019-09-12 09:16] MED LIST changes: +DIAZ5TAB PO; +OXAP600T2 PO
--- NOTE | 2019-09-12 10:01 | PHYS DOC ---
Past History Past Medical History: Hypertension Past Surgical History: Other Additional Past Surgical Histo: oral Smoking: Non-smoker Alcohol Use: Occasionally Drug Use: None Adult General Chief Complaint Chief Complaint: SORE THROAT HPI HPI Patient is a 49-year-old male who presents with complaint of cough and congestion along with chills. Patient denies any chest pain or shortness of breath. He does indicate he has some sore throat which she thinks is due to postnasal drip. Symptoms have been present for the last couple of days.[] Review of Systems Review of Systems Constitutional: Positive subjective fever and chills [] Eyes: Denies change in visual acuity, redness, or eye pain [] HENT: Positive congestion and sore throat [] Respiratory: Positive cough without shortness of breath [] Cardiovascular: No additional information not addressed in HPI [] Integument: Denies rash or skin lesions [] Allergies Allergies Allergies Coded Allergies Type Severity Reaction Last Updated Verified naproxen Allergy Unknown 04/06/19 Yes Physical Exam Physical Exam Constitutional: Well developed, well nourished, no acute distress, non-toxic appearance. [] HENT: Normocephalic, atraumatic, bilateral external ears normal, pharyngeal erythema without exudates is noted. [] Cardiovascular:Heart rate regular rhythm, no murmur [] Lungs & Thorax: Bilateral breath sounds clear to auscultation [] Neurologic: Alert and oriented X 3, no focal deficits noted. [] Current Patient Data Vital Signs Vital Signs Date Time Temp Pulse Resp B/P (MAP) Pulse Ox O2 Delivery O2 Flow Rate FiO2 09/12/19 09:16 97.8 89 16 141/85 (103) 98 EKG EKG [] Radiology/Procedures Radiology/Procedures [] Course & Med Decision Making Course & Med Decision Making Pertinent Labs and Imaging studies reviewed. (See chart for details) [] Dragon Disclaimer Dragon Disclaimer This electronic medical record was generated, in whole or in part, using a voice recognition dictation system. Departure Departure: Impression: Primary Impression: Acute sinusitis Disposition: 01 HOME, SELF-CARE Condition: STABLE Referrals: CINDY CROOK DO (PCP) Patient Instructions: Sinusitis Scripts Methylprednisolone (MEDROL) 4 Mg Tab.ds.pk 1 PKG PO UD for inflammation, #1 PKG Prov: CHAVO SALINAS Jr., DO 09/12/19 Amoxicillin/Potassium Clav (AUGMENTIN 875-125 TABLET) 1 Each Tablet 1 TAB PO BID for infection for 10 Days, #20 TAB 0 Refills Prov: CHAVO SALINAS Jr. DO 09/12/19 Problem Qualifiers Primary Impression: Acute sinusitis Sinusitis location: unspecified location Recurrence: non-recurrent Qualified Codes: J01.90 - Acute sinusitis, unspecified CHAVO SALINAS Jr. DO Sep 12, 2019 10:00
[2019-09-12 10:14] LABS: INFLUENZA A PATIENT NEGATIVE (NEGATIVE); INFLUENZA B PATIENT NEGATIVE (NEGATIVE)
[2019-09-12] MEDS ORDERED: AMOX1TAB61 PO (10:23)
[2019-09-12] MEDS ORDERED: METH4TAB2 PO (10:23)
== END 2019-09-12 10:27 | disposition home or self-care (01) ==
LOC: ER 09:16
DX: J01.90 Acute sinusitis, unspecified (principal); I10 Essential (primary) hypertension; Z88.8 Allergy status to other drugs, medicaments and biological substances
CPT/HCPCS: 87070; 87804; 87880; 99283

== ENCOUNTER 2019-09-18 18:09 | Emergency (ER) | payer OTHER ==
[~2019-09-18] VITALS: Ht 188 cm; Wt 102.6 kg
[~2019-09-18 18:09] MED LIST changes: +AMOX1TAB61 PO; +METH4TAB2 PO
--- NOTE | 2019-09-18 18:11 | PHYS DOC ---
Past History Past Medical History: Hypertension Past Surgical History: Other Additional Past Surgical Histo: oral Smoking: Non-smoker Alcohol Use: Occasionally Drug Use: None Adult General Chief Complaint Chief Complaint: ".. I was here last Sat. got checked for flu and strept.. they were negative... Dr. Gross started me on Augmentin for sinus infection... I was doing okay.. but today started gettting chills and fevers 100.9 and 101.6... I would be fine.. but I got a child getting Leukemia treatment... and if I got something .. I need to get on top of it...." HPI HPI Patient is a 49 year old male who presents with above hx and complaints flu symptoms. Patient currently taking Augmentin twice a day. Did not fill the prescription for steroids because he states it keeps him awake. Patient currently assigned to [employer] as his station. No recent travel or specific ill contacts. Son undergoing treatment for leukemia. Patient is up-to-date with vaccinations. Normally healthy. Exception of recent fever ,chills, generalized malaise and arthralgia. Review of Systems Review of Systems Constitutional: Complaints of fever or chills [] Eyes: Denies change in visual acuity, redness, or eye pain [] HENT: Denies nasal congestion or sore throat [] Respiratory: Complaints of a nonproductive cough Cardiovascular: No additional information not addressed in HPI [] GI: Denies abdominal pain, nausea, vomiting, bloody stools or diarrhea [] : Denies dysuria or hematuria [] Musculoskeletal: Complaints of generalized malaise and myalgia and arthralgia Integument: Denies rash or skin lesions [] Neurologic: Denies headache, focal weakness or sensory changes [] Endocrine: Denies polyuria or polydipsia [] All other systems were reviewed and found to be within normal limits, except as documented in this note. Family History Family History Child is undergoing treatment for leukemia Current Medications Current Medications See nursing for home meds Allergies Allergies Allergies Coded Allergies Type Severity Reaction Last Updated Verified naproxen Allergy Unknown 04/06/19 Yes Physical Exam Physical Exam Constitutional: Well developed, well nourished, moderate acute distress, non- toxic appearance. [] HENT: Normocephalic, atraumatic, bilateral external ears normal, oropharynx moist, no oral exudates, nose clear rhinorrhea swollen turbinates. Mild inje ction of pharynx postnasal drainage, Eyes: PERRLA, EOMI, conjunctiva normal, no discharge. [] Neck: Normal range of motion, no tenderness, supple, no stridor. [] Cardiovascular: Tachycardia Heart rate regular rhythm, no murmur [] Lungs & Thorax: Bilateral breath sounds with apex with few scattered wheezes auscultation [] Abdomen: Bowel sounds normal, soft, no tenderness, no masses, no pulsatile masses. [] Skin: Warm, dry, no erythema, no rash. [] Back: No tenderness, no CVA tenderness. [] Extremities: No tenderness, no cyanosis, no clubbing, ROM intact, no edema. [] Neurologic: Alert and oriented X 3, normal motor function, normal sensory function, no focal deficits noted. [] Psychologic: Affect anxious, judgement normal, mood normal. [] EKG EKG [] Radiology/Procedures Radiology/Procedures [] Course & Med Decision Making Course & Med Decision Making Pertinent Labs and Imaging studies reviewed. (See chart for details) Push fluids. Take Tylenol and ibuprofen as needed for discomfort. Follow-up primary care. Frequent handwashing. Return if any concerns. Complete course of Augmentin as planned. Impression: 1. Fever 2. Viral syndrome 3. History of sinusitis currently taking Augmentin [] Dragon Disclaimer Dragon Disclaimer This electronic medical record was generated, in whole or in part, using a voice recognition dictation system. Departure Departure: Disposition: HOME/RESIDENCE PRIOR TO ADM Condition: STABLE Referrals: CINDY CROOK DO (PCP) Scripts Acetaminophen (ACETAMINOPHEN) 500 Mg Tablet 1000 MG PO QIDPRN PRN for fever and discomfort, #120 TAB Prov: EDIN MASTERSON MD 09/18/19 Ibuprofen (IBUPROFEN) 800 Mg Tablet 800 MG PO TID for fever or discomfort, #120 TAB Prov: EDIN MASTERSON MD 09/18/19 Frieda Disclaimer This chart was dictated in whole or in part using Voice Recognition software in a busy, high-work load, and often noisy Emergency Department environment. It may contain unintended and wholly unrecognized errors or omissions. EDIN MASTERSON MD Sep 18, 2019 18:11
[2019-09-18 18:32] VITALS: BP 163/91
[2019-09-18 19:00] LABS: INFLUENZA A PATIENT NEGATIVE (NEGATIVE); INFLUENZA B PATIENT NEGATIVE (NEGATIVE)
[2019-09-18] MEDS ORDERED: IBUP800T19 PO (19:22)
[2019-09-18] MEDS ORDERED: ACET500T68 PO (19:23)
[2019-09-18] MEDS ORDERED: IBUPROFEN 800 MG TABLET. PO ONE (19:30)
== END 2019-09-18 19:28 | disposition home or self-care (01) ==
LOC: ER 18:09
DX: B34.9 Viral infection, unspecified (principal); I10 Essential (primary) hypertension; Z88.8 Allergy status to other drugs, medicaments and biological substances
CPT/HCPCS: 87070; 87804; 87880; 99283

== ENCOUNTER 2019-09-22 08:15 | Emergency (ER) | payer OTHER ==
[~2019-09-22] VITALS: Ht 188 cm; Wt 101.1 kg
[~2019-09-22 08:15] MED LIST changes: +ACET500T68 PO
[2019-09-22 08:23] VITALS: BP 170/94
--- NOTE | 2019-09-22 08:53 | PHYS DOC ---
Past History Past Medical History: Hypertension Past Surgical History: Other Additional Past Surgical Histo: oral Smoking: Non-smoker Alcohol Use: Occasionally Drug Use: None Adult General Chief Complaint Chief Complaint: COUGH HPI HPI Patient is a 49 year old male who presents with complaint of coughing for 10 days. Was initially seen in the emergency department on September 12, 2019. The patient was diagnosed with sinusitis and started on Augmentin at that time. Notes initially he felt better, but started to have worsening symptoms within days after being seen in the emergency department. Was seen again on September 18, 2019. Diagnosed with viral syndrome at that time and advised to continue supportive care. Notes that he has had continued harsh coughing which has been making it difficult for him to sleep at nighttime. Has been having reported fevers at home. Has been using both DayQuil and NyQuil with no improvement in symptoms. Does note increased tightness in the chest with breathing and shortness of breath with exertion. Denies substernal chest pain. Review of Systems Review of Systems Constitutional: Fever[] Eyes: Denies change in visual acuity, redness, or eye pain [] HENT: Runny nose, congestion, sore throat[] Respiratory: Nonproductive cough, wheezing[] Cardiovascular: Denies substernal chest pain or edema[] GI: Denies abdominal pain, nausea, vomiting, bloody stools or diarrhea [] : Denies dysuria or hematuria [] Musculoskeletal: Denies back pain or joint pain [] Integument: Denies rash or skin lesions [] Neurologic: Denies headache, focal weakness or sensory changes [] All other systems were reviewed and found to be within normal limits, except as documented in this note. Allergies Allergies Allergies Coded Allergies Type Severity Reaction Last Updated Verified naproxen Allergy Unknown 04/06/19 Yes Physical Exam Physical Exam Constitutional: Well developed, well nourished, no acute distress, non-toxic appearance. [] HENT: Normocephalic, atraumatic, bilateral external ears normal, oropharynx moist, no oral exudates, nose normal. [] Eyes: PERRLA, EOMI, conjunctiva normal, no discharge. [] Neck: Normal range of motion, no tenderness, supple, no stridor. [] Cardiovascular:Heart rate regular rhythm, no murmur [] Lungs & Thorax: No accessory muscle usage present, faint expiratory wheezes bilaterally, rhonchi bilaterally, rales[] Abdomen: Bowel sounds normal, soft, no tenderness, no masses, no pulsatile masses. [] Skin: Warm, dry, no erythema, no rash. [] Back: No tenderness, no CVA tenderness. [] Extremities: No tenderness, no cyanosis, no clubbing, ROM intact, no edema. [] Neurologic: Alert and oriented X 3, normal motor function, normal sensory function, no focal deficits noted. [] Current Patient Data Vital Signs Vital Signs Date Time Temp Pulse Resp B/P (MAP) Pulse Ox O2 Delivery O2 Flow Rate FiO2 09/22/19 08:23 98.1 89 20 170/94 (119) 96 Room Air Lab Results Laboratory Tests Test 09/22/19 08:54 White Blood Count 6.5 x10^3/uL Red Blood Count 4.88 x10^6/uL Hemoglobin 15.5 g/dL Hematocrit 45.6 % Mean Corpuscular Volume 94 fL Mean Corpuscular Hemoglobin 32 pg Mean Corpuscular Hemoglobin Concent 34 g/dL Red Cell Distribution Width 13.3 % Platelet Count 292 x10^3/uL Neutrophils (%) (Auto) 63 % Lymphocytes (%) (Auto) 24 % Monocytes (%) (Auto) 7 % Eosinophils (%) (Auto) 5 % Basophils (%) (Auto) 1 % Neutrophils # (Auto) 4.1 x10^3uL Lymphocytes # (Auto) 1.6 x10^3/uL Monocytes # (Auto) 0.4 x10^3/uL Eosinophils # (Auto) 0.3 x10^3/uL Basophils # (Auto) 0.1 x10^3/uL Sodium Level 137 mmol/L Potassium Level 4.2 mmol/L Chloride Level 100 mmol/L Carbon Dioxide Level 25 mmol/L Anion Gap 12 Blood Urea Nitrogen 7 mg/dL Creatinine 1.0 mg/dL Estimated GFR (Cockcroft-Gault) 79.4 Glucose Level 109 mg/dL Calcium Level 8.5 mg/dL Current Medications Medications (Trade) Dose Ordered Sig/Harshad Route PRN Reason Start Time Stop Time Status Last Admin Dose Admin Albuterol/ Ipratropium (Duoneb) 3 ml 1X ONCE NEB 09/22/19 09:15 09/22/19 09:16 DC 09/22/19 09:16 Prednisone (Prednisone) 50 mg 1X ONCE PO 09/22/19 09:15 09/22/19 09:16 DC 09/22/19 09:10 EKG EKG Not performed[] Radiology/Procedures Radiology/Procedures [address] [address] IMAGING REPORT Signed PATIENT: PALMER JOYCCOUNT: [id number] : 1970 LOCATION: ER AGE: 49 SEX: M EXAM STATUS: REG ER ORD. PHYSICIAN: MELO BUCK MD REASON: COUGH, INTERMITENT FEVER, COUGH X 5 DAYS PROCEDURE: CHEST PA & LATERAL CHEST PA LATERAL Clinical indications: Cough for 5 days. Intermittent fever. COMPARISON: April 16, 2019. Findings: No acute lung infiltrate or pleural effusion or pulmonary edema or lung mass or pneumothorax is seen. The heart size, pulmonary vasculature, mediastinum and both steph are unremarkable. The osseous structures appear intact. Impression: No acute radiographic abnormality is seen. Electronically signed by: Derek Mckoy MD (09/22/2019 9:17 AM) [id number] DICTATED AND SIGNED BY: DEREK MCKOY MD DATE: 09/22/19916 CC: MELO BUCK MD; CINDY CROOK DO ~ [] Course & Med Decision Making Course & Med Decision Making Pertinent Labs and Imaging studies reviewed. (See chart for details) Patient was treated with DuoNeb and prednisone in the emergency department. Chest x-ray shows no evidence of infiltrate or edema. Blood work is unremarkable. Symptoms appear consistent with acute bronchitis. Given failure of outpatient treatment and chronicity of symptoms, I do feel this patient is appropriate for antibiotic therapy in addition to treatment with prednisone and albuterol. Patient prescribed 10 day course of doxycycline for treatment. Will also continue additional 4 days of prednisone at high dose burst for treatment of bronchitis symptoms. Prescribed albuterol for bronchospasm and hydrocodone elixir for cough suppressant. Advised follow-up with primary doctor in 3 days for reevaluation and return to the emergency department for any worsening symptoms. Patient was understanding and in agreement with treatment plan.[] Dragon Disclaimer Dragon Disclaimer This electronic medical record was generated, in whole or in part, using a voice recognition dictation system. Departure Departure: Impression: Primary Impression: Acute bronchitis Disposition: 01 HOME, SELF-CARE Condition: IMPROVED Referrals: CINDY CROOK DO (PCP) Patient Instructions: Acute Bronchitis Additional Instructions: Follow-up with your primary doctor in 3 days for reevaluation. Return to the emergency department for any worsening symptoms. Scripts Hydrocodone Bit/Acetaminophen (HYDROCODONE-APAP 7.5-325/15 SOLN ) 15 Ml Solution 10 ML PO Q4-6HRS PRN for PAIN MDD 90 Milliliter(s), #120 ML 0 Refills Prov: MELO BUCK MD 09/22/19 Prednisone (PREDNISONE) 10 Mg Tablet 50 MG PO DAILY for 4 Days, #20 TAB First dose to be taken September 22, 2019 at 0800. Prov: MELO BUCK MD 09/22/19 Albuterol Sulfate (PROAIR HFA INHALER) 8.5 Gm Hfa.aer.ad 2 PUFF IH Q4-6HRS PRN for wheezing for 21 Days, #1 INHALER 0 Refills Prov: MELO BUCK MD 09/22/19 Doxycycline Hyclate (DOXYCYCLINE HYCLATE) 100 Mg Capsule 1 CAP PO BID, #20 CAP Prov: MELO BUCK MD 09/22/19 Problem Qualifiers Primary Impression: Acute bronchitis Bronchitis organism: unspecified organism Qualified Codes: J20.9 - Acute bronchitis, unspecified MELO BUCK MD Sep 22, 2019 08:53
[2019-09-22 09:07] LABS: BASO # 0.1 x10^3/uL (0.0-0.2); BASO % 1 % (0-3); EOS # 0.3 x10^3/uL (0.0-0.7); EOS % 5 % (0-3); HEMATOCRIT 45.6 % (39.0-53.0); HEMOGLOBIN 15.5 g/dL (13.0-17.5); LYMPH # 1.6 x10^3/uL (1.0-4.8); LYMPH % 24 % (24-48); MEAN CORPUSCULAR HEMOGLOBIN 32 pg (25-35); MEAN CORPUSCULAR HGB CONC 34 g/dL (31-37); MEAN CORPUSCULAR VOLUME 94 fL (79-100); MONO # 0.4 x10^3/uL (0.0-1.1); MONO % 7 % (0-9); NEUT # 4.1 x10^3uL (1.8-7.7); NEUT % 63 % (31-73); PLATELET COUNT 292 x10^3/uL (140-400); RED BLOOD COUNT 4.88 x10^6/uL (4.30-5.70); RED CELL DISTRIBUTION WIDTH 13.3 % (11.5-14.5); WHITE BLOOD COUNT 6.5 x10^3/uL (4.0-11.0)
[2019-09-22 09:14] LABS: CALCIUM 8.5 mg/dL (8.5-10.1); GFR 79.4; POTASSIUM 4.2 mmol/L (3.5-5.1)
[2019-09-22] MEDS ORDERED: IPRATRPIUM/ALBUTEROL 0.5/2.5MG 3 ML NEBU. NEB ONE (09:15)
[2019-09-22] MEDS ORDERED: predniSONE 10 MG TABLET PO ONE (09:15)
--- NOTE | 2019-09-22 09:20 | RAD ---
CHEST PA LATERAL Clinical indications: Cough for 5 days. Intermittent fever. COMPARISON: April 16, 2019. Findings: No acute lung infiltrate or pleural effusion or pulmonary edema or lung mass or pneumothorax is seen. The heart size, pulmonary vasculature, mediastinum and both steph are unremarkable. The osseous structures appear intact. Impression: No acute radiographic abnormality is seen. Electronically signed by: Derek Mckoy MD (09/22/2019 9:17 AM) [id number]
[2019-09-22] MEDS ORDERED: PRED-220 PO (09:37)
[2019-09-22] MEDS ORDERED: DOXY100C2 PO (09:37)
[2019-09-22] MEDS ORDERED: ALBU2.5V8 IH (09:37)
[2019-09-22] MEDS ORDERED: HYDR15SO6 PO (09:37)
== END 2019-09-22 09:45 | disposition home or self-care (01) ==
LOC: ER 08:15
DX: J20.9 Acute bronchitis, unspecified (principal); I10 Essential (primary) hypertension; Z88.8 Allergy status to other drugs, medicaments and biological substances
CPT/HCPCS: 36415; 71046; 80048; 85025; 94640; 99284; J7512